=== PATIENT | male | born 1995 | race African-American/Black ===

== ENCOUNTER 2020-02-01 03:09 | Emergency (ER) | payer SELFPAY ==
[~2020-02-01] VITALS: Ht 170.2 cm; Wt 118.2 kg
[2020-02-01 03:16] VITALS: Ht 170.2 cm; Wt 118.2 kg
[2020-02-01] MEDS ORDERED: CLEOCIN HCL300 MG PO (03:43)
[2020-02-01] MEDS ORDERED: NORCO 7.5-3251 EACH GT (03:43)
[2020-02-01 03:49] VITALS: BP 130/72
== END 2020-02-01 03:50 | disposition home or self-care (01) ==
LOC: D.ER 03:09
DX: K04.7 Periapical abscess without sinus (principal); K08.89 Other specified disorders of teeth and supporting structures; K02.9 Dental caries, unspecified; Z72.0 Tobacco use